=== PATIENT | female | born 1950 | race Caucasian/White ===

== ENCOUNTER 2019-10-27 07:27 | Day surgery (SDC) | payer MEDICARE ==
[2019-10-26 11:31] LABS: EOSINOPHILS # (AUTO) 0.1 X10'3 (0-0.9); HEMOGLOBIN 12.6 g/dl (12.0-16.0); MEAN PLATELET VOLUME 8.5 FL (7.4-10.4)
[2019-10-26 11:32] LABS: BASOPHILS % (AUTO) 0.5 % (0-1); EOSINOPHILS % (AUTO) 1.9 % (0-6); LYMPHOCYTES # (AUTO) 1.1 X10'3 (1.1-4.8); LYMPHOCYTES % (AUTO) 17.1 % (21-51); MEAN CORPUSCULAR HEMOGLOBIN 30.1 PG (27.0-31.0); MEAN CORPUSCULAR HGB CONC 32.4 g/dL (33.0-36.5); MEAN CORPUSCULAR VOLUME 92.8 FL (78-98); MONOCYTES # (AUTO) 0.5 X10'3 (0-0.9); MONOCYTES % (AUTO) 8.8 % (2-12); NEUTROPHILS # (AUTO) 4.4 X10'3 (1.8-7.7); NEUTROPHILS % (AUTO) 71.7 % (42-75); PLATELET COUNT 352 X10'3 (140-440); RED CELL DISTRIBUTION WIDTH 17.2 % (11.5-14.5); WHITE BLOOD COUNT 6.2 X10'3 (4.5-11.0)
[2019-10-26 11:46] LABS: PARTIAL THROMBOPLASTIN TIME 28 SECONDS (22-32)
[2019-10-26 11:58] LABS: ALANINE AMINOTRANSFERASE 30 U/L (12-78); ALBUMIN 3.5 G/DL (3.4-5.0); ALBUMIN/GLOBULIN RATIO 0.9 (1.1-1.5); ALKALINE PHOSPHATASE 99 IU/L (46-116); ANION GAP 7 (8-16); ASPARTATE AMINO TRANSFERASE 23 U/L (10-37); BILIRUBIN,TOTAL 0.8 MG/DL (0.1-1.0); BLOOD UREA NITROGEN 15 MG/DL (7-18); BUN/CREATININE RATIO 17.6 (6.6-38.0); CALCIUM 8.6 MG/DL (8.5-10.1); CHLORIDE 102 MMOL/L (99-107); CREATININE 0.85 MG/DL (0.40-0.90); GLUCOSE 88 MG/DL (70-104); POTASSIUM 4.1 MMOL/L (3.5-5.1); SODIUM 137 MMOL/L (135-145); TOTAL CARBON DIOXIDE 27.8 MMOL/L (24-32); TOTAL PROTEIN 7.3 G/DL (6.4-8.2); eGFR 66 ML/MIN
[2019-10-26 12:27] LABS: ANISOCYTOSIS 1+; PLATELET ESTIMATE NORMAL; TOTAL CELLS COUNTED 100
[~2019-10-27] VITALS: Ht 165.1 cm; Wt 61.6 kg
[2019-10-27] VITALS (12 sets, daily range): BP systolic 94–134; BP diastolic 39–69
[2019-10-27] MEDS ORDERED: diphenhydrAMINE 25mg capsule PO PRN (07:45)
[2019-10-27] MEDS ORDERED: normal saline 1,000 ML IV SCH (07:45)
[2019-10-27] MEDS ORDERED: LORazepam 0.5 MG tablet PO PRN (07:45)
[2019-10-27] MEDS ORDERED: nitroGLYCERIN 0.4mg SUBLingual tab SL PRN (07:45)
[2019-10-27] MEDS ORDERED: NITR0.4T51 PO (08:54)
[2019-10-27] MEDS ORDERED: FLUO-1 PO (08:54)
[2019-10-27] MEDS ORDERED: METO-395 PO (08:54)
[2019-10-27] MEDS ORDERED: ATOR10TA70 PO (08:54)
[2019-10-27] MEDS ORDERED: ASPI-1265 PO (08:54)
[2019-10-27] MEDS ORDERED: UBID300C PO (08:55)
[2019-10-27] MEDS ORDERED: LACT1CAP73 PO (08:56)
[2019-10-27] MEDS ORDERED: OMEG-15 PO (08:57)
[2019-10-27] MEDS ORDERED: LORA-660 PO (08:57)
[2019-10-27] MEDS ORDERED: GLUC-133 PO (08:58)
[2019-10-27] MEDS ORDERED: iohexol 350MG/ML 100ml bottle IV ONE (09:06)
[2019-10-27] MEDS ORDERED: LIDOcaine 1% (10mg/ml)w/preservative injection 20ml MDV ONE (09:06)
[2019-10-27] MEDS ORDERED: iohexol 350 MG/ML 50ML vial IV ONE (09:06)
[2019-10-27] MEDS ORDERED: midazolam 2 mg/2 ml injection ONE (09:07)
[2019-10-27] MEDS ORDERED: fentaNYL/PF 50MCG/1 ML 2ML syringe ONE (09:07)
== END 2019-10-27 17:00 | disposition home or self-care (01) ==
LOC: SSTAY O 07:27
PROVIDERS: ATTEND Internal Medicine Cardiovascular Disease
DX: I25.118 Atherosclerotic heart disease of native coronary artery with other forms of angina pectoris (principal); I10 Essential (primary) hypertension; E78.5 Hyperlipidemia, unspecified; Z98.890 Other specified postprocedural states; Z79.01 Long term (current) use of anticoagulants; Z90.710 Acquired absence of both cervix and uterus; Z79.899 Other long term (current) drug therapy
CPT/HCPCS: 36415; 71046; 80053; 85025; 85610; 85730; 93458; 99152; 99153; C1760; C1769; J1644; J2001; J2250; J3010; J7030; Q0163; Q9967; A4620; A6258